=== PATIENT | male | born 1950 | race Caucasian/White ===

== ENCOUNTER 2021-01-02 06:31 | Observation (INO) | payer OTHER ==
[~2021-01-02] VITALS: Ht 180.3 cm; Wt 69.4 kg
[2021-01-02 07:32] VITALS: BP 187/71
[2021-01-02 07:38] LABS: ABSOLUTE NEUTROPHILS 8.6 thou/uL (1.4-8.2); BASOPHILS 0.6 % (0.0-2.0); HEMATOCRIT 43.2 % (42.0-52.0); HEMOGLOBIN 14.8 gm/dL (14.0-18.0); LYMPHOCYTES 18.2 % (24.0-44.0); MCH 30.3 pg (26.0-34.0); MCHC 34.1 g/dL (28.0-37.0); MCV 88.6 fL (80.0-100.0); MONOCYTES 7.8 % (1.0-8.0); PLATELET COUNT 159 thou/uL (150-400); POLYS 72.4 % (36.0-66.0); RBC 4.88 mil/uL (4.50-6.00); RDW 13.9 % (10.5-14.5); WBC 11.9 thou/uL (4.0-11.0)
[2021-01-02 07:46] LABS: CALCIUM 8.4 mg/dL (8.5-10.1); CREATININE 0.7 mg/dL (0.7-1.3); POTASSIUM 3.6 mmol/L (3.5-5.1)
[2021-01-02] MEDS ORDERED: LIPITOR10 MG PO (07:48)
[2021-01-02] MEDS ORDERED: XANAX 0.5 MG0.5 M1 PO (07:48)
[2021-01-02] MEDS ORDERED: NORVASC 2.5 MG2.5 MG PO (07:48)
[2021-01-02] MEDS ORDERED: SLEEP AID50 MG PO (07:48)
[2021-01-02 07:50] LABS: APTT 28.2 Seconds (24.5-32.8); INR 1.06; PROTIME 11.5 Seconds (10.5-12.1)
[2021-01-02 07:52] LABS: ALBUMIN 3.7 g/dL (3.4-5.0); TOTAL BILIRUBIN 0.6 mg/dL (0.2-1.0)
[2021-01-02 14:25] VITALS: BP 184/81
--- NOTE | 2021-01-02 17:23 | NUR ---
PT ARRIVED ON THE UNIT AT APPROXIMATELY 1430. FROM PACEMAKER PLACEMENT. PT A&O X 4, PT, DENIES ANY COMPLAINTS. ALL VITALS WITHIN ACCEPTABLE LIMITS. ADMISSION TO UNIT COMPLETED.
[2021-01-02 20:03] VITALS: BP 190/72
[2021-01-02 23:17] VITALS: BP 185/78
[2021-01-03 04:57] VITALS: BP 199/86
[2021-01-03 08:10] VITALS: BP 189/76
[2021-01-03 12:20] VITALS: BP 200/80
[2021-01-03 12:25] VITALS: BP 189/76
[2021-01-03] MEDS ORDERED: NORVASC5 MG PO (12:39)
--- NOTE | 2021-01-03 13:26 | P ---
[facility] [place] [address] PROCEDURE REPORT Name: MURIEL NEGRETE Room #: 207-P [facility] M.R.#: [id number] Admission: 01/02/21 Attend Phys: Price Montalvo MD Discharge: Date of : 54 Report #: [id number] THIS REPORT FOR: cc: Bubba Hopkins Jeffrey W. DO Couchonnal,Price Anna MD ~ DATE OF SERVICE: 01/02/2021 PREOPERATIVE DIAGNOSIS: Sick sinus syndrome. POSTOPERATIVE DIAGNOSIS: Sick sinus syndrome. HISTORY: The patient is a 70-year-old male with history symptomatic bradycardia secondary to sick sinus syndrome, here for dual-chamber pacemaker implantation. ANESTHESIA: The patient underwent MAC anesthesia with no anesthesia related complications. DESCRIPTION OF PROCEDURE: The patient underwent informed consent. We discussed the details of the procedure including the risks, which include but not limited to bleeding, infection, vascular damage, cardiac perforation, pneumothorax. He understood these risks and is willing to proceed. The patient was brought to the EP laboratory in a fasting and sedated state, prepped and draped in a standard fashion, received IV vancomycin and underwent a venogram showing patency of left axillary vein. Next, I injected lidocaine below the level of left clavicle. Incision was made, pocket created over the prepectoral fascia. Access was obtained twice to left axillary vein using the extrathoracic approach with sheaths positioned using the modified Seldinger technique. Leads were positioned at the right ventricular apex and the right atrial appendage. The thresholds were high initially and I repositioned the leads and they were high, but improved with time. As such, the leads were sutured to the prepectoral fascia. Device connected, tug test performed. Pocket was irrigated with vancomycin and then closed in 2 layers with 2-0 for the deep layer, 3-0 for the middle layer and surgical glue was placed to outer skin layer. The patient awoke neurologically and hemodynamically intact. No complications and no significant bleeding. The implanted pacemaker and leads were from [employer]. The model number was W3DR01, serial number [id number]. Atrial lead was a 5076, 52 cm, serial number [id number]. RV lead was a 5076, 58 cm, serial number [id number]. Atrial lead demonstrated P waves of 2 millivolts, pacing impedance 467 ohms. The pacing threshold of 2 volts at 1 millisecond. The RV lead demonstrated R waves of 10 millivolts, pacing impedance of 802 ohms and a pacing threshold of 0.75 volts at 0.4 milliseconds. The device was programmed to the AAIR/DDDR 60-130 mode. CONCLUSION: [facility] [address] [place] [address] PROCEDURE REPORT Name: MURIEL NEGRETE Room #: 207-P [facility] M.R.#: [id number] Admission: 01/02/21 Attend Phys: Price Montalvo MD Discharge: Date of : 54 Report #: [id number] 1. Successful dual-chamber pacemaker implantation. 2. Satisfactory atrial and ventricular pacing and sensing thresholds. <ELECTRONICALLY SIGNED> By: Price Montalvo MD 01/03/21 1326 [id number] Price Montalvo MD /nt
[2021-01-03 15:58] VITALS: BP 176/82
--- NOTE | 2021-01-03 15:58 | NUR ---
ASSESSMENT CHARTED. PT ALERT AND ORIENTED. DENIED HAVING PAIN OR DISCOMFORT. SEEN BY DR. CHRISTIANSON. ORDERS GIVEN TO DISCHARGE PT TO HOME. PACE MAKER INCISION C/D/I. NO HEMATOMA NOTED. DISCHARGE INSTRUCTIONS GIVEN TO PT. PT VERBERLISED UNDERSTANDING.
== END 2021-01-03 15:58 | disposition home or self-care (01) ==
LOC: CATH 06:31 → 2N 14:21
PROVIDERS: ADMIT Internal Medicine Cardiovascular Disease; ATTEND Internal Medicine Cardiovascular Disease
DX: I49.5 Sick sinus syndrome (principal); Z20.822 Contact with and (suspected) exposure to COVID-19; I10 Essential (primary) hypertension; E78.5 Hyperlipidemia, unspecified; E11.9 Type 2 diabetes mellitus without complications; L40.50 Arthropathic psoriasis, unspecified; F41.9 Anxiety disorder, unspecified; F17.210 Nicotine dependence, cigarettes, uncomplicated; Z79.899 Other long term (current) drug therapy
CPT/HCPCS: 62110; 62900; 70005